=== PATIENT | female | born 1990 | race American Indian/Alaskan Native ===

== ENCOUNTER 2018-07-10 12:27 | Emergency (ER) | payer MEDICAID, OTHER ==
[2018-07-10 13:26] LABS: HCG Qualitative,Urine Positive (Negative)
--- NOTE | 2018-07-10 13:35 | Emergency Department Report ---
ED Dysuria HPI - HPI Chief Complaint: Vaginal Bleeding Stated Complaint: ABD PAIN/BLEEDING 2 WEEKS Time Seen by Provider: 07/10/18 13:32 Duration: 2 Days Severity: Mild Symptoms: Dysuria: No, Frequency: No, Suprapubic Pain: No, Flank Pain: No, Fever: No, Hematuria: No, Abdominal Pain: No, Previous UTI's: No Other History: 27 yo AA female with vomiting X1 this AM. LMP 05/07- not sure exact date. spotted x 1 12-14. never been . denies bleeding at this time. denies vaginal discharge. ED Review of Systems ROS: Stated complaint: ABD PAIN/BLEEDING 2 WEEKS Other details as noted in HPI Comment: All other systems reviewed and negative Constitutional: denies: chills Eyes: denies: eye pain ENT: denies: ear pain Respiratory: denies: orthopnea Cardiovascular: denies: dyspnea on exertion Endocrine: denies: flushing Gastrointestinal: denies: nausea Genitourinary: as per HPI. denies: dysuria Musculoskeletal: denies: as per HPI Skin: denies: lesions Neurological: denies: headache Psychiatric: denies: anxiety Hematological/Lymphatic: denies: easy bleeding ED Past Medical Hx - Past Medical History Previous Medical History?: No - Surgical History Past Surgical History?: No - Family History Family history: no significant - Social History Smoking Status: Never Smoker Substance Use Type: None - Medications Home Medications: Home Medications Medication Instructions Recorded Confirmed Last Taken Type Ondansetron [Zofran Odt] 4 mg PO Q8HR PRN #10 tab.rapdis 07/10/18 Unknown Rx Dysuria Exam - Exam General: Vital signs noted. No distress. Alert and acting appropriately. Exam: Yes Moist Mucous Membranes, No CVA Tenderness, No Abdominal Tenderness, No Rigidity or Guarding Labs: Lab Results 07/10/18 Range/Units 12:57 Urine HCG, Qual Positive A (Negative) ED Course Vital Signs 07/10/18 12:43 Temperature 98.2 F Pulse Rate 73 Respiratory 18 Rate Blood Pressure 130/68 O2 Sat by Pulse 100 Oximetry ED Medical Decision Making - Medical Decision Making pos preg test pt stated " I dont want this damn thing" never been before pt hysterical when told- crying etc. denied wanting me to call family for her. Labs 01/21/19 12:57 Urine Color Red Urine Turbidity Cloudy Urine pH 7.0 Ur Specific Hooper 1.021 Urine Protein 100 mg/dl Urine Glucose (UA) Neg Urine Ketones Tr Urine Blood Lg Urine Nitrite Neg Ur Reducing Substances Not Reportable Urine Bilirubin Neg Urine Ictotest Not Reportable Urine Urobilinogen 2.0 Ur Leukocyte Esterase Tr Urine WBC (Auto) 56.0 H Urine RBC (Auto) > 182.0 U Epithel Cells (Auto) 26.0 H Urine Mucus 2+ Urine HCG, Qual Positive A - Differential Diagnosis ro ; uti Critical care attestation.: If time is entered above; I have spent that time in minutes in the direct care of this critically ill patient, excluding procedure time. 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
[2018-07-10 13:41] LABS: Bilirubin,Urine NEG (Negative); Blood,Urine LG (Negative); Color,Urine Red (Yellow); Mucus,Urine 2+ /HPF
[2018-07-10 13:43] LABS: RBC,Urine > 182.0 /HPF (0.0-6.0)
[2018-07-10 13:47] VITALS: BP 136/71
== END 2018-07-10 13:46 | disposition home or self-care (01) ==
LOC: ED 12:27
DX: N93.9 Abnormal uterine and vaginal bleeding, unspecified (principal)
CPT/HCPCS: 81001; 81025; 99283

== ENCOUNTER 2018-11-14 09:14 | Emergency (ER) | payer MEDICAID, OTHER ==
[2018-11-14 09:19] VITALS: BP 128/83
[2018-11-14] MEDS ORDERED: DECADRON IM ONE (10:23)
[2018-11-14] MEDS ORDERED: FLEXERIL PO ONE (10:23)
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
== END 2018-11-14 10:40 | disposition home or self-care (01) ==
LOC: ED 09:14
DX: G89.29 Other chronic pain (principal); M54.5 Low back pain; F12.10 Cannabis abuse, uncomplicated
CPT/HCPCS: 96372; 99282; J1100